=== PATIENT | female | born 1940 | race Caucasian/White ===

== ENCOUNTER → 2020-10-28 | Outpatient (CLI) | payer MEDICARE ==
[2015-05-31 05:44] VITALS: BP 165/88
[~2020-10-28] MED LIST: FENT1PAT17 TD; HYDR-2765 PO
--- NOTE | 2020-10-28 11:37 | RAD ---
EXAM: Renal sonogram. HISTORY: Hematuria. TECHNIQUE: Sonographic imaging of the kidneys and bladder was performed. COMPARISON: None. FINDINGS: The right kidney measures 7.8 cm [id number]. The left kidney measures 8.0 cm [id number] . No solid or cystic renal lesion is seen. There is no hydronephrosis. The prevoid bladder volume is 16 cc. There is no evidence of a post void bladder residual. The ureteral jets are not seen during th e exam. IMPRESSION: 1. Bilateral renal atrophy. 2. No post void bladder residual. Electronically signed by: Hattie Diaz MD (10/28/2020 11:35 AM) [id number]
== END ==
LOC: US 10:39
PROVIDERS: ATTEND Internal Medicine Nephrology
DX: N26.1 Atrophy of kidney (terminal) (principal)
CPT/HCPCS: 76770

== ENCOUNTER → 2020-11-11 | Outpatient (CLI) | payer MEDICARE ==
[2015-05-31 05:44] VITALS: BP 165/88
--- NOTE | 2020-11-12 11:45 | RAD ---
DATE: 11/11/2020 11:01 AM EXAM: DIGITAL SCREEN BILAT W/CAD HISTORY: Screening COMPARISON: 03/20/2010 Bilateral full field craniocaudal and mediolateral oblique images were obtained using digital technique. This study was interpreted with the benefit of Computerized Aided Detection (CAD). FINDINGS: Breast Density: SCATTERED The breast parenchyma shows scattered fibroglandular densities. Breast parenchyma level B No suspicious masses, microcalcifications or architectural distortion is present to suggest malignancy in either breast. The visualized axillae are unremarkable. IMPRESSION: No mammographic evidence of malignancy. BI-RADS CATEGORY: 1 NEGATIVE RECOMMENDED FOLLOW-UP: 12M 12 MONTH FOLLOW-UP Annual screening mammography is recommended, unless clinically indicated sooner based on symptoms or change in physical exam. PQRS compliance statement: Patient information was entered into a reminder system with a target due date for the next mammogram. Mammography is a sensitive method for finding small breast cancers, but it does not detect them all and is not a substitute for careful clinical examination. A negative mammogram does not negate a clinically suspicious finding and should not result in delay in biopsying a clinically suspicious abnormality. "Our facility is accredited by the [employer] Mammography Program."
== END ==
LOC: MAMMO 10:43
PROVIDERS: ATTEND Family Medicine
DX: Z12.31 Encounter for screening mammogram for malignant neoplasm of breast (principal)
CPT/HCPCS: 77067